=== PATIENT | male | born 1995 | race African-American/Black ===

== ENCOUNTER 2017-02-18 18:01 | Emergency (ER) | payer OTHER ==
[2017-02-18 18:21] VITALS: BP 122/68; PULSE 69; TEMP 98.8; BMI 23.5
[2017-02-18] MEDS ORDERED: IBUPROFEN 600 MG TABLET (FP) PO ONE (20:39)
--- NOTE | 2017-02-18 20:41 | PDOC ---
[id number] FALL/INJURY Time Seen by Provider: 02/18/17 20:15 History Source: Patient Exam Limitations: No Limitations - History of Present Illness Initial Comments: 02/18/17 21:54 Morgan is here with complaints of headache head pain and concerned about need for CAT scan. was seen at urgent care 2 days ago status post slip and fall on wet floor. since that time is had a mild headache, but was concerned that he may have brain damage. Patient has no LOC with injury, no mental status changes, no vomiting, no distracting injury. Occurred: reports: other (3 days ago) Pain Location: reports: head Loss of Consciousness: no loss of consciousness Associated Symptoms (Fall): denies symptoms Past History - Travel Traveled outside of the country in the last 30 days: No Close contact w/someone who was outside of country & ill: No - Past Medical History Allergies/Adverse Reactions: Allergies Allergy/AdvReac Type Severity Reaction Status Date / Time No Known Allergies Allergy Verified 02/18/17 18:19 Home Medications: Ambulatory Orders Famotidine [Pepcid] 40 mg PO DAILY #20 tablet 11/11/15 Ondansetron [Zofran *Odt*] 4 mg SL TID #30 od.tablet 11/11/15 - Immunization History Immunization Up to Date: Yes - Psycho/Social/Smoking Cessation Hx Suicidal Ideation: No Smoking History: Never smoked Hx Alcohol Use: Yes Drug/Substance Use Hx: No Review of Systems - Review of Systems Able to Perform ROS?: Yes Is the patient limited Green[place]ic proficient: Yes Constitutional: Yes: See HPI. No: Symptoms Reported, Loss of Appetite, Malaise HEENTM: Yes: See HPI. No: Symptoms Reported, Eye Pain, Blurred Vision Respiratory: Yes: See HPI. No: Symptoms reported, Cough Musculoskeletal: Yes: See HPI. No: Symptoms Reported, Back Pain, Joint Pain Integumentary: No: Symptoms Reported Neurological: Yes: Symptoms reported, See HPI, Headache (mild) All Other Systems: Reviewed and Negative *Physical Exam - Vital Signs Last Vital Signs Temp Pulse Resp BP Pulse Ox 98.8 F 69 18 122/68 97 02/18/17 18:19 02/18/17 18:19 02/18/17 18:19 02/18/17 18:19 02/18/17 18:19 - Physical Exam General Appearance: Yes: Nourished, Appropriately Dressed. No: Apparent Distress HEENT: positive: CASSIDY, Normal ENT Inspection, TMs Normal (hemotympanum, no drainage from nose or ears, no evidence of skull fracture), Pharynx Normal Neck: positive: Supple. negative: Tender Respiratory/Chest: positive: Lungs Clear, Normal Breath Sounds Gastrointestinal/Abdominal: positive: Normal Bowel Sounds, Soft. negative: Tender Musculoskeletal: positive: Normal Inspection. negative: CVA Tenderness Extremity: positive: Normal Capillary Refill, Normal Inspection, Normal Range of Motion Integumentary: positive: Normal Color, Dry, Warm Neurologic: positive: mill recorder II-XII NML intact, Fully Oriented, Alert, Normal Mood/ Affect, Normal Response, Motor Strength /5 Progress Note - Progress Note Progress Note: Superficial head injury with no evidence of significant injury. Reviewed indications for radiology studies which patient has no indication that there is any intracranial pathology. States was glad not to have the need for any further studies and would use ibuprofen for pain relief. *DC/Admit/Observation/Transfer Diagnosis at time of Disposition: Superficial head injury Qualifiers: Encounter type: initial encounter Qualified Code(s): S00.90XA - Unspecified superficial injury of unspecified part of head, initial encounter - Discharge Dispostion Disposition: HOME Condition at time of disposition: Stable Admit: No - Referrals Referrals: Nicole Armando [Primary Care Provider] - Joseph Ragsdale MD [Staff Physician] - - Patient Instructions Printed Discharge Instructions: DI for Closed Head Injury Additional Instructions: Rest, avoid strenuous activity or exercise for the next 24-48 hours May use ice on contusions as needed. May use Tylenol or Motrin for pain relief Watch and seek evaluation for changes in behavior including crankiness, inconsolability, quietness/ sleepiness that is inappropriate, tiredness that is inappropriate, watch for worsening and changes of behavior. Seek immediate evaluation/return to emergency department for vomiting, mental status changes, pain that's out of proportion , bloody drainage from ears or nose. Followup with private physician as needed in one to 2 days for reevaluation - Post Discharge Activity Work/School Note: Back to Work
== END 2017-02-18 22:38 | disposition home or self-care (01) ==
LOC: JERFT 18:01
DX: S00.90XA Unspecified superficial injury of unspecified part of head, initial encounter (principal); W01.0XXA Fall on same level from slipping, tripping and stumbling without subsequent striking against object, initial encounter; Y93.89 Activity, other specified; Y92.89 Other specified places as the place of occurrence of the external cause
CPT/HCPCS: 99281-25

== ENCOUNTER 2020-03-25 23:30 | Emergency (ER) | payer OTHER ==
[2020-03-25 23:43] VITALS: BP 121/73; PULSE 96; TEMP 98.8; BMI 25.9
== END 2020-03-26 00:30 | disposition home or self-care (01) ==
LOC: JER 23:30
DX: S31.829A Unspecified open wound of left buttock, initial encounter (principal)
CPT/HCPCS: 99282-25